=== PATIENT | female | born 1965 | race Caucasian/White ===

== ENCOUNTER → 2024-11-25 | Outpatient (CLI) | payer OTHER ==
[2024-11-25 14:50] LABS: PLATELET COUNT, AUTOMATED 380 10^3/uL (150-450)
[2024-11-25 15:16] LABS: CREATININE FOR GFR 0.99 MG/DL (0.55-1.30); GLOMERULAR FILTRATION RATE 66.5 (>51); POTASSIUM SERUM 4.0 MMOL/L (3.5-5.1); SODIUM LEVEL 140.0 MMOL/L (136-145)
[2024-11-27 07:20] LABS: LDL DIRECT 129 mg/dL (<100)
== END ==
LOC: M LAB 13:42
PROVIDERS: ATTEND Internal Medicine
DX: Z00.00 Encounter for general adult medical examination without abnormal findings (principal); I10 Essential (primary) hypertension; E78.00 Pure hypercholesterolemia, unspecified; R76.89 Other specified abnormal immunological findings in serum